=== PATIENT | male | born 1970 | race Caucasian/White ===

== ENCOUNTER → 2017-09-21 | Outpatient (CLI) | payer SELFPAY | LOC: M OUTALCOH 11:06 | DX: F10.20 Alcohol dependence, uncomplicated (principal) ==

== ENCOUNTER 2017-10-02 15:49 | Outpatient (RCR) | payer SELFPAY | END 2017-10-15 | LOC: M OUTALCOH 15:49 | DX: F10.20 Alcohol dependence, uncomplicated (principal); F12.20 Cannabis dependence, uncomplicated ==

== ENCOUNTER 2017-10-16 16:25 | Outpatient (RCR) | payer SELFPAY | END 2017-11-14 | LOC: M OUTALCOH 10-26 13:00 | DX: F10.20 Alcohol dependence, uncomplicated (principal); F12.20 Cannabis dependence, uncomplicated ==

== ENCOUNTER 2017-11-19 15:36 | Outpatient (RCR) | payer SELFPAY | END 2017-12-15 | LOC: M OUTALCOH 15:36 | DX: F10.20 Alcohol dependence, uncomplicated (principal); F12.20 Cannabis dependence, uncomplicated ==

== ENCOUNTER 2018-01-20 15:08 | Outpatient (RCR) | payer SELFPAY | END 2018-02-14 | LOC: M OUTALCOH 15:08 | DX: F10.20 Alcohol dependence, uncomplicated (principal); F12.20 Cannabis dependence, uncomplicated ==

== ENCOUNTER 2018-02-26 15:38 | Outpatient (RCR) | payer SELFPAY | END 2018-03-17 | LOC: M OUTALCOH 15:38 | DX: F10.20 Alcohol dependence, uncomplicated (principal); F12.20 Cannabis dependence, uncomplicated ==

== ENCOUNTER 2018-03-22 14:09 | Outpatient (RCR) | payer SELFPAY | END 2018-04-16 | LOC: M OUTALCOH 14:09 | DX: F10.20 Alcohol dependence, uncomplicated (principal); F12.20 Cannabis dependence, uncomplicated ==

== ENCOUNTER → 2019-11-17 | Outpatient (REF) | payer SELFPAY ==
[2019-11-17 19:00] LABS: CRYSTALS, BODY FLUID NONE SEEN (NONE SEEN); SOURCE, BODY FLUID LFT KNEE; SOURCE, BODY FLUID CRYSTALS LFT KNEE; SYNOVIAL FLUID COLOR YELLOW (YELLOW)
[2019-11-17 19:10] LABS: SOURCE, BODY FLUID GLUCOSE LFT KNEE
[2019-11-18 10:08] LABS: BODY FLUID RHEUMATOID SCREEN NEGATIVE (NEGATIVE); MUCIN CLOT TEST 4+ (4+)
== END ==
LOC: M LAB REF 17:54
PROVIDERS: ATTEND Orthopaedic Surgery
DX: M25.462 Effusion, left knee (principal)

== ENCOUNTER → 2019-11-17 | Outpatient (CLI) | payer SELFPAY ==
--- NOTE | 2019-11-17 15:18 | REP ---
DUPLEX EXTREMITY VENOUS ULTRASOUND: Left lower extremity. HISTORY: Left leg pain. Rule out DVT. FINDINGS: The deep veins are anechoic and fully compressible from the groin to the popliteal fossa in the left lower extremity. Color flow imaging is homogeneous. Spectral Doppler interrogation demonstrates intact respiratory variation in flow and normal manual augmentation of flow. There is no evidence of deep vein thrombosis. There is a complex 5.3 x 2.7 x 9.3 cm fluid collection in the posterior popliteal fossa on the left. This exhibits significant tenderness to transducer pressure and is consistent with a Pichardo's cyst, possibly a ruptured or dissecting. IMPRESSION: 9.3 cm complex fluid collection in the popliteal fossa of the left leg consistent with a dissecting Pichardo's cyst. Very tender to scanning over this. Otherwise negative left lower extremity duplex venous ultrasound. No evidence of deep vein thrombosis. Electronically Signed by Bj San MD 11/17/2019 04:14 P
== END ==
LOC: M RAD 14:17
PROVIDERS: ATTEND Physician Assistant
DX: M70.862 Other soft tissue disorders related to use, overuse and pressure, left lower leg (principal)

== ENCOUNTER → 2019-11-22 | Outpatient (REF) | payer SELFPAY ==
[2019-11-22 11:36] LABS: BASO # 0.1 10^3/uL (0.0-0.2); EOS # 0.3 10^3/uL (0.0-0.5); EOS % 3.5 % (0.0-3.0); HEMATOCRIT 42.1 % (42.0-52.0); HEMOGLOBIN 13.6 g/dl (13.5-17.5); LYMPH # 3.9 10^3/uL (1.5-5.0); LYMPH % 42.6 % (24.0-44.0); MEAN CORPUSCULAR HEMOGLOBIN 29.2 pg (27.0-33.0); MEAN CORPUSCULAR HGB CONC 32.3 g/dl (32.0-36.5); MEAN CORPUSCULAR VOLUME 90.5 fl (80.0-96.0); MONO # 0.7 10^3/uL (0.0-0.8); MONO % 7.8 % (0.0-5.0); NEUTROPHILS # 4.1 10^3/uL (1.5-8.5); NEUTROPHILS % 44.3 % (36.0-66.0); PLATELET COUNT, AUTOMATED 373 10^3/uL (150-450); RED BLOOD COUNT 4.65 10^6/uL (4.30-6.10); WHITE BLOOD COUNT 9.1 10^3/uL (4.0-10.0)
[2019-11-22 11:51] LABS: C REACTIVE PROTEIN QUANTITATIV 0.7 MG/DL (0.00-0.30); URIC ACID 5.8 MG/DL (3.5-7.2)
[2019-11-22 12:12] LABS: ERYTHROCYTE SEDIMENTATION RATE 26 mm/hr (0-20)
[2019-11-24 14:08] LABS: Lyme Disease IgG Ab 18 kDa Ban Present (.); Lyme Disease IgG Ab 23 kDa Ban Present (.); Lyme Disease IgG Ab 28 kDa Ban Present (.); Lyme Disease IgG Ab 30 kDa Ban Present (.); Lyme Disease IgG Ab 39 kDa Ban Present (.); Lyme Disease IgG Ab 41 kDa Ban Present (.); Lyme Disease IgG Ab 45 kDa Ban Present (.); Lyme Disease IgG Ab 58 kDa Ban Present (.); Lyme Disease IgG Ab 66 kDa Ban Present (.); Lyme Disease IgG Ab 93 kDa Ban Present (.); Lyme Disease IgG West Blot Int Positive (.); Lyme Disease IgG/IgM Antibodie 5.08 ISR (0.00-0.90); Lyme Disease IgM Ab 23 kDa Ban Present (.); Lyme Disease IgM Ab 39 kDa Ban Absent (.); Lyme Disease IgM Ab 41 kDa Ban Present (.); Lyme Disease IgM Ab Quantitati 4.96 index (0.00-0.79); Lyme Disease IgM West Blot Int Positive (.)
== END ==
LOC: M LABDRAWC 11:05
PROVIDERS: ATTEND Orthopaedic Surgery
DX: M25.462 Effusion, left knee (principal)

== ENCOUNTER → 2020-09-17 | Outpatient (CLI) | payer SELFPAY | LOC: M OUTALCOH 09:36 | PROVIDERS: ATTEND Psychiatry & Neurology Psychiatry | DX: Z03.89 Encounter for observation for other suspected diseases and conditions ruled out (principal) ==

== ENCOUNTER 2020-09-24 08:14 | Outpatient (RCR) | payer SELFPAY | END 2020-10-15 | LOC: M OUTALCOH 08:14 | PROVIDERS: ATTEND Psychiatry & Neurology Psychiatry | DX: Z03.89 Encounter for observation for other suspected diseases and conditions ruled out (principal) ==

== ENCOUNTER 2022-09-30 14:37 | Emergency (ER) | payer SELFPAY ==
[~2022-09-30] VITALS: Ht 170.2 cm; Wt 195.0 kg
[2022-09-30] MEDS ORDERED: MORPHINE 4 MG/ML 1ML VIAL IV ONE (17:05)
[2022-09-30] MEDS ORDERED: NS 1,000 ML IV ONE (17:15)
[2022-09-30 17:57] LABS: BASO # 0.1 10^3/uL (0.0-0.2); BASO % 0.9 % (0.0-1.0); EOS # 0.2 10^3/uL (0.0-0.5); HEMATOCRIT 39.6 % (42.0-52.0); HEMOGLOBIN 13.7 g/dl (13.5-17.5); LYMPH % 39.5 % (24.0-44.0); MEAN CORPUSCULAR HEMOGLOBIN 31.1 pg (27.0-33.0); MEAN CORPUSCULAR HGB CONC 34.6 g/dl (32.0-36.5); MONO # 0.6 10^3/uL (0.0-0.8); MONO % 7.6 % (2.0-8.0); NEUTROPHILS # 3.8 10^3/uL (1.5-8.5); NEUTROPHILS % 49.9 % (36.0-66.0); PLATELET COUNT, AUTOMATED 193 10^3/uL (150-450); WHITE BLOOD COUNT 7.6 10^3/uL (4.0-10.0)
[2022-09-30] MEDS ORDERED: KETOROLAC 30 MG/ML 1ML VIAL IV ONE (18:00)
[2022-09-30 18:19] LABS: ALBUMIN 3.6 G/DL (3.2-5.2); BILIRUBIN,DIRECT 0.2 MG/DL (<0.4); BILIRUBIN,TOTAL 0.6 MG/DL (0.3-1.2); TOTAL PROTEIN 6.2 G/DL (5.7-8.2)
[2022-09-30] MEDS ORDERED: ISOVUE-370 76% 100ML VIAL As Ordered ONE (18:40)
[2022-09-30] MEDS ORDERED: NORCO, ANEXSIA 5/325MG TABLET (HYDROcodone/ACETAMINOPHEN) PO ONE (20:15)
[2022-09-30] MEDS ORDERED: MELO15TA28 PO (20:18)
[2022-09-30 20:29] VITALS: BP 132/77
== END 2022-09-30 21:07 | disposition home or self-care (01) ==
LOC: M ED 14:37
DX: M25.551 Pain in right hip (principal)
CPT/HCPCS: 73502; 74177; 80047; 80076; 81001; 83605; 83690; 85025; 87040; 96374; 96375; 99284; J1885; Q9967